=== PATIENT | male | born 1950 | race Caucasian/White ===

== ENCOUNTER 2021-12-30 08:29 | Outpatient (CLI) | payer MEDICARE, BC, SELFPAY ==
[2021-12-30 16:18] LABS: Albumin* 4.9 g/dL (3.3-5.0)
[2021-12-30 16:20] LABS: Cholesterol* 132 mg/dL (90-199)
[2021-12-30 16:21] LABS: Alanine Aminotransferase* 23 U/L (4-50); Alkaline Phosphatase* 97 U/L (40-150); Aspartate Amino Transferase* 23 U/L (12-35); Bilirubin Direct* 0.4 mg/dL (0.0-0.5); Bilirubin Total* 1.4 mg/dL (0.1-1.5); HDL Cholesterol* 70 mg/dL (>=40); LDL Cholesterol Calculated 49 mg/dL (<100); Total Protein* 6.9 g/dL (6.0-8.3); Triglycerides* 67 mg/dL (40-149)
[2021-12-30 16:45] LABS: PSA Screen* 6.59 ng/mL (0.10-4.00)
== END 2021-12-30 08:30 | disposition home or self-care (01) ==
PROVIDERS: PCP Family Medicine; Visit Provider Family Medicine
DX: Z00.00 Encounter for general adult medical examination without abnormal findings (principal); E78.00 Pure hypercholesterolemia, unspecified; N40.0 Benign prostatic hyperplasia without lower urinary tract symptoms; I10 Essential (primary) hypertension; R73.03 Prediabetes
CPT/HCPCS: 80061; 80076; 84153

== ENCOUNTER 2023-02-11 08:15 | Outpatient (CLI) | payer MEDICARE, BC, SELFPAY | END 2023-02-11 08:16 | disposition home or self-care (01) | PROVIDERS: PCP Family Medicine; Visit Provider Family Medicine | DX: Z00.00 Encounter for general adult medical examination without abnormal findings (principal); E78.00 Pure hypercholesterolemia, unspecified; I10 Essential (primary) hypertension; R73.03 Prediabetes | CPT/HCPCS: 80053; 80061 ==

== ENCOUNTER 2024-02-08 09:41 | Outpatient (CLI) | payer MEDICARE, BC, SELFPAY | END 2024-02-08 09:42 | disposition home or self-care (01) | LOC: LKVREF 09:42 | PROVIDERS: PCP Family Medicine; Visit Provider Family Medicine | DX: E78.00 Pure hypercholesterolemia, unspecified (principal); I10 Essential (primary) hypertension | CPT/HCPCS: 80053; 80061 ==

== ENCOUNTER 2024-03-08 08:51 | Outpatient (CLI) | payer MEDICARE, BC, SELFPAY | END 2024-03-08 08:52 | disposition home or self-care (01) | LOC: NFLDREF 03-11 17:42 | PROVIDERS: PCP Family Medicine; Referring Provider Family Medicine; Visit Provider Family Medicine | DX: E83.52 Hypercalcemia (principal) | CPT/HCPCS: 80053 ==

== ENCOUNTER 2025-01-31 09:01 | Outpatient (CLI) | payer MEDICARE, BC, SELFPAY | END 2025-01-31 09:02 | disposition home or self-care (01) | LOC: NFLDREF 02-02 10:33 | PROVIDERS: PCP Family Medicine; Referring Provider Family Medicine; Visit Provider Family Medicine | DX: E78.00 Pure hypercholesterolemia, unspecified (principal); I10 Essential (primary) hypertension; R73.03 Prediabetes | CPT/HCPCS: 80053; 80061 ==